=== PATIENT | female | born 1960 | race Caucasian/White ===

== ENCOUNTER 2025-01-27 15:18 | Outpatient (CLI) | payer MEDICARE, BC, SELFPAY ==
--- NOTE | 2025-01-27 15:30 | MR_ITS ---
[facility] [address] [facility] [address] Phone:?[phone] Fax:?[phone] Referring Physician Information: Rojas Drummond M.D. [id number] [facility] [address] Phone:?[phone] Fax:?[phone] Patient:Carmela Vela D.O.B:?1960 Sex:?Female Phone:?[phone] [facility] MRN:?[id number] Exam Date:?01/27/2025 EXAM: MRI OF THE RIGHT WRIST WITHOUT CONTRAST CLINICAL: Evaluate for mass/ganglion cyst. COMPARISONS: None available. TECHNICAL: Multiplanar multisequence MRI of the right wrist was obtained. SEDATION: None. CONTRAST: None. FINDINGS: Joints/Osseous structures: There is bone marrow edema and small cystic change involving the proximal ulnar aspect of the lunate. Small osseous cystic change involving the radial base of the first metacarpal at the first CMC joint. TFCC: There is partial tearing of the radial fibers of the triangular fibrocartilage disc proper as seen on coronal series 6 images 8-9. Ill-defined degenerative changes involving the remainder of the TFCC. Ligaments: Scapholunate: No sprain/tear. Lunotriquetral: No sprain/tear. Tendons: Flexors: Intact without significant tendinosis or tenosynovitis. Extensors: ECU & 6th extensor compartment: No significant tendinosis, tear or tenosynovitis. 1st - 5th extensor compartments: There is partial tearing with associated complex ganglion cyst formation versus other complex mass with cystic and soft tissue components seen to involve the extensor digitorum tendon of the second digit as it courses along the dorsal wrist measuring approximately 20 x 14 x 10 mm in size as seen on sagittal series 9 image 10 and axial series 4 image 20. Apparent mild partial tearing of the adjacent extensor third and fourth extensor tendons on axial series 4 image 20- 21 and there is tendinosis and possibly mild partial tearing of the extensor digitorum tendons of the third and fourth digits proximal to this as it courses along the dorsal distal radius on axial series 4 images 9-13. There is moderate increased fluid about the fourth extensor compartment tendons. Remaining extensor tendons appear unremarkable. Neurovascular: Median: Unremarkable carpal tunnel without convincing neuritis or intrinsic/extrinsic masses. Ulnar: Unremarkable Guyon's canal without intrinsic/extrinsic masses. IMPRESSION: 1. Partial tearing with associated complex ganglion cyst formation versus other complex mass involving the extensor digitorum tendon of the second digit as it courses along the dorsal wrist as above. Recommend follow-up with axial and sagittal T1 fat-saturated pre and post contrast sequences for further evaluation. 2. Mild partial tearing of the adjacent third and fourth extensor tendons with tendinosis and possibly mild partial tearing of the more proximal third and fourth digit extensor tendons as they course along the dorsal distal radius. Moderate fluid about the fourth extensor compartment tendons as they course along the dorsal wrist. 3. Bone marrow edema and osseous cystic change involving the proximal ulnar aspect of the lunate which can be seen in patients with ulnolunate impaction syndrome. 4. Partial tearing involving the radial fibers of the triangular fibrocartilage disc proper with ill-defined degenerative changes involving the remainder of the TFCC. JCZ Electronically signed on 01/29/2025 8:52:00 AM by Adis Singleton D.O.
== END 2025-01-27 15:19 | disposition home or self-care (01) ==
LOC: MRI 15:23
PROVIDERS: PCP Physician Assistant Medical; Visit Provider Orthopaedic Surgery
DX: M67.431 Ganglion, right wrist (principal); M24.231 Disorder of ligament, right wrist; M67.833 Other specified disorders of tendon, right wrist; M85.841 Other specified disorders of bone density and structure, right hand
CPT/HCPCS: 73221